=== PATIENT | male | born 1945 ===

== ENCOUNTER 2021-11-10 09:18 | Emergency (ER) | payer OTHER ==
[~2021-11-10] VITALS: Ht 172.7 cm; Wt 103.9 kg
[2021-11-10] MEDS ORDERED: LISINOPRIL-HCT1 EAC1 PO (09:51)
== END 2021-11-10 12:55 | disposition home or self-care (01) ==
LOC: ER 09:18
DX: S80.01XA Contusion of right knee, initial encounter (principal); W18.30XA Fall on same level, unspecified, initial encounter; Y93.9 Activity, unspecified; Y92.9 Unspecified place or not applicable; Y99.9 Unspecified external cause status